=== PATIENT | male | born 1985 | race Caucasian/White ===

== ENCOUNTER 2019-01-20 00:38 | Emergency (ER) | payer OTHER ==
[~2019-01-20] VITALS: Ht 182.9 cm; Wt 68.0 kg
[2019-01-20] MEDS ORDERED: ACETAMINOPHEN-1 EAC2 PO (01:34)
[2019-01-20 02:08] VITALS: BP 108/64
== END 2019-01-20 02:08 | disposition home or self-care (01) ==
LOC: M.ERS 00:38
DX: S62.316A Displaced fracture of base of fifth metacarpal bone, right hand, initial encounter for closed fracture (principal); F17.200 Nicotine dependence, unspecified, uncomplicated; Z88.0 Allergy status to penicillin; W18.39XA Other fall on same level, initial encounter; Y92.89 Other specified places as the place of occurrence of the external cause; Y93.89 Activity, other specified; Y99.8 Other external cause status